=== PATIENT | female | born 1980 | race Caucasian/White ===

== ENCOUNTER 2018-07-02 17:47 | Inpatient (IN) | payer OTHER ==
[2018-07-02] MEDS ORDERED: ASPIRIN PO ONE (18:08)
[2018-07-02 18:29] LABS: Hemoglobin 14.8 gm/dl (10.1-14.3); Mean Corpuscular HGB Conc 33 % (30-34); Mean Corpuscular Volume 89 fl (79-97); Platelet Count 283 K/mm3 (140-440); Red Blood Count 5.04 M/mm3 (3.65-5.03); Red Cell Distribution Width 13.8 % (13.2-15.2)
[2018-07-02 18:30] LABS: Basophils # (Auto) 0.1 K/mm3 (0.0-0.1); Eosinophils # (Auto) 0.3 K/mm3 (0.0-0.4); Lymphocytes # (Auto) 3.8 K/mm3 (1.2-5.4); Lymphocytes % (Auto) 30.8 % (13.4-35.0); Monocytes # (Auto) 0.6 K/mm3 (0.0-0.8); Monocytes % (Auto) 5.1 % (0.0-7.3)
[2018-07-02 18:46] LABS: BUN/Creatinine Ratio 22; Blood Urea Nitrogen 13 mg/dL (7-17); Calcium 9.7 mg/dL (8.4-10.2); Hemolysis Index 26
--- NOTE | 2018-07-02 18:47 | Emergency Department Report ---
ED Chest Pain HPI - General Chief Complaint: Chest Pain Stated Complaint: CHEST PAIN Time Seen by Provider: 07/02/18 18:21 Source: patient, EMS Mode of arrival: Stretcher Limitations: No Limitations - History of Present Illness MD Complaint: chest pain -: Sudden, hour(s) (7), This morning Onset: during rest Pain Location: substernal Pain Radiation: back Severity scale (0 -10): 7 Quality: pressure Consistency: constant Improves With: nothing Worsens With: nothing re: nausea, dyspnea. denies: vomting Treatments Prior to Arrival: aspirin Aspirin use within the Past 7 Days: (1) Yes - Related Data On Oral Contraceptives: No Previous Rx's Medication Instructions Recorded Last Taken Type Aspirin EC [Aspirin Enteric Coated 81 mg PO QDAY #30 tablet.dr 02/18/18 Unknown Rx TAB] AtorvaSTATin [Lipitor] 40 mg PO QHS #30 tablet 02/18/18 Unknown Rx Losartan [Cozaar] 50 mg PO QDAY #30 tablet 02/18/18 Unknown Rx Metoprolol [Lopressor TAB] 25 mg PO BID #60 tablet 02/18/18 Unknown Rx Prasugrel [Effient] 10 mg PO QDAY #30 tablet 02/18/18 Unknown Rx Sitagliptin Phos/Metformin HCl 1 tab PO BID #60 tablet 02/18/18 Unknown Rx [Janumet 50-1,000 mg] Allergies Allergy/AdvReac Type Severity Reaction Status Date / Time No Known Allergies Allergy Unverified 02/15/18 15:16 Heart Score - HEART Score History: Highly suspicious EKG: Non-specific Age: < 45 Risk factors: > 3 risk factors or hx of atherosclerotic disease Troponin: < normal limit HEART Score: 5 - Critical Actions Critical Actions: 4-6 pts:12-16.6% risk of adverse cardiac event. Should be admitted ED Review of Systems ROS: Stated complaint: CHEST PAIN Other details as noted in HPI Comment: All other systems reviewed and negative Constitutional: denies: chills, fever Eyes: denies: eye pain, eye discharge, vision change ENT: denies: ear pain, throat pain Respiratory: shortness of breath. denies: cough, wheezing Cardiovascular: chest pain. denies: palpitations Endocrine: no symptoms reported Gastrointestinal: nausea. denies: abdominal pain, vomiting, diarrhea Genitourinary: denies: urgency, dysuria, discharge Musculoskeletal: denies: back pain, joint swelling, arthralgia Skin: denies: rash, lesions Neurological: denies: headache, weakness, paresthesias Psychiatric: denies: anxiety, depression Hematological/Lymphatic: denies: easy bleeding, easy bruising ED Past Medical Hx - Past Medical History Hx Hypertension: Yes Hx CVA: No Hx Heart Attack/AMI: No Hx Congestive Heart Failure: No Hx Diabetes: Yes Hx Deep Vein Thrombosis: No Hx Pulmonary Embolism: No Hx GERD: Yes Hx Liver Disease: No Hx Renal Disease: No Hx Sickle Cell Disease: No Hx Arthritis: No Hx Headaches / Migraines: No Hx Seizures: No Hx Kidney Stones: No Hx Psychiatric Treatment: No Hx Asthma: No Hx COPD: No Hx Tuberculosis: No Hx Dementia: No Hx HIV: No Additional medical history: high cholesterol, acid reflux tx over the counter, 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 - Surgical History Hx Coronary Stent: No Hx Open Heart Surgery: No Hx Pacemaker: No Hx Internal Defibrillator: Yes Hx Cholecystectomy: Yes Hx Appendectomy: No Hx Breast Surgery: No - Social History Smoking Status: Current Every Day Smoker - Medications Home Medications: Home Medications Medication Instructions Recorded Confirmed Last Taken Type Aspirin EC [Aspirin Enteric Coated 81 mg PO QDAY #30 tablet.dr 02/18/18 Unknown Rx TAB] AtorvaSTATin [Lipitor] 40 mg PO QHS #30 tablet 02/18/18 Unknown Rx Losartan [Cozaar] 50 mg PO QDAY #30 tablet 02/18/18 Unknown Rx Metoprolol [Lopressor TAB] 25 mg PO BID #60 tablet 02/18/18 Unknown Rx Prasugrel [Effient] 10 mg PO QDAY #30 tablet 02/18/18 Unknown Rx Sitagliptin Phos/Metformin HCl 1 tab PO BID #60 tablet 02/18/18 Unknown Rx [Janumet 50-1,000 mg] ED Physical Exam - General Limitations: No Limitations General appearance: alert, in no apparent distress - Head Head exam: Present: atraumatic, normocephalic - Eye Eye exam: Present: normal appearance, PERRL, EOMI Pupils: Present: normal accommodation - ENT ENT exam: Present: normal exam, normal orophraynx, mucous membranes moist - Neck Neck exam: Present: normal inspection, full ROM. Absent: tenderness - Respiratory Respiratory exam: Present: normal lung sounds bilaterally. Absent: respiratory distress, wheezes, rales, rhonchi - Cardiovascular Cardiovascular Exam: Present: regular rate, normal rhythm, normal heart sounds. Absent: systolic murmur, diastolic murmur, rubs, gallop - GI/Abdominal GI/Abdominal exam: Present: soft, normal bowel sounds - Extremities Exam Extremities exam: Present: normal inspection - Back Exam Back exam: Present: normal inspection - Neurological Exam Neurological exam: Present: alert, oriented X3, CN II-XII intact - Psychiatric Psychiatric exam: Present: normal affect, normal mood - Skin Skin exam: Present: warm, dry, intact, normal color. Absent: rash ED Course Vital Signs 07/02/18 07/02/18 07/02/18 18:18 18:29 19:03 Temperature 98.5 F Pulse Rate 85 89 Respiratory 17 15 Rate Blood Pressure 124/89 126/93 [Left] O2 Sat by Pulse 99 97 98 Oximetry - Consultations Consultation #1: 07/02/18 19:27 I called the hospitalist web content manager Dr Barcenas and he advised me to give the patient to the nurse practitioner Ms. Santiago. Ms. Santiago will admit patient to the night Hospitalist. 07/02/18 19:35 Dr Barcenas does not want a bridge order placed. BECK score - Beck Score Age > 65: (0) No Aspirin use within the Past 7 Days: (1) Yes 3 or more CAD Risk Factors: (1) Yes 2 or more Angina events in past 24 hrs: (1) Yes Known CAD with more than 50% Stenosis: (1) Yes Elevated Cardiac Markers: (0) No ST Deviation Greater than 0.5mm: (0) No BECK Score: 4 ED Medical Decision Making - Lab Data Result diagrams: 07/02/18 18:18 07/02/18 18:18 Lab Results 07/02/18 07/02/18 07/02/18 Range/Units 18:18 18:18 18:18 WBC 12.5 H (4.5-11.0) K/mm3 RBC 5.04 H (3.65-5.03) M/mm3 Hgb 14.8 H (10.1-14.3) gm/dl Hct 45.0 H (30.3-42.9) % MCV 89 (79-97) fl MCH 29 (28-32) pg MCHC 33 (30-34) % RDW 13.8 (13.2-15.2) % Plt Count 283 (140-440) K/mm3 Lymph % (Auto) 30.8 (13.4-35.0) % [place] % (Auto) 5.1 (0.0-7.3) % Eos % (Auto) 2.0 (0.0-4.3) % Baso % (Auto) 1.0 (0.0-1.8) % Lymph # 3.8 (1.2-5.4) K/mm3 [place] # 0.6 (0.0-0.8) K/mm3 Eos # 0.3 (0.0-0.4) K/mm3 Baso # 0.1 (0.0-0.1) K/mm3 Seg Neutrophils % 61.1 (40.0-70.0) % Seg Neutrophils # 7.6 (1.8-7.7) K/mm3 PT (12.2-14.9) Sec. INR (0.87-1.13) APTT (24.2-36.6) Sec. Sodium 136 L (137-145) mmol/L Potassium 4.5 (3.6-5.0) mmol/L Chloride 98.6 (98-107) mmol/L Carbon Dioxide 24 (22-30) mmol/L Anion Gap 18 mmol/L BUN 13 (7-17) mg/dL Creatinine 0.6 L (0.7-1.2) mg/dL Estimated GFR > 60 ml/min BUN/Creatinine Ratio 22 % Glucose 144 H (65-100) mg/dL Calcium 9.7 (8.4-10.2) mg/dL Troponin T < 0.010 (0.00-0.029) ng/mL HCG, Qual Negative (Negative) 07/02/18 Range/Units 18:57 WBC (4.5-11.0) K/mm3 RBC (3.65-5.03) M/mm3 Hgb (10.1-14.3) gm/dl Hct (30.3-42.9) % MCV (79-97) fl MCH (28-32) pg MCHC (30-34) % RDW (13.2-15.2) % Plt Count (140-440) K/mm3 Lymph % (Auto) (13.4-35.0) % [place] % (Auto) (0.0-7.3) % Eos % (Auto) (0.0-4.3) % Baso % (Auto) (0.0-1.8) % Lymph # (1.2-5.4) K/mm3 [place] # (0.0-0.8) K/mm3 Eos # (0.0-0.4) K/mm3 Baso # (0.0-0.1) K/mm3 Seg Neutrophils % (40.0-70.0) % Seg Neutrophils # (1.8-7.7) K/mm3 PT 12.6 (12.2-14.9) Sec. INR 0.89 (0.87-1.13) APTT 27.1 (24.2-36.6) Sec. Sodium (137-145) mmol/L Potassium (3.6-5.0) mmol/L Chloride (98-107) mmol/L Carbon Dioxide (22-30) mmol/L Anion Gap mmol/L BUN (7-17) mg/dL Creatinine (0.7-1.2) mg/dL Estimated GFR ml/min BUN/Creatinine Ratio % Glucose (65-100) mg/dL Calcium (8.4-10.2) mg/dL Troponin T (0.00-0.029) ng/mL HCG, Qual (Negative) - EKG Data -: EKG Interpreted by Me EKG shows normal: sinus rhythm Rate: normal (87) - EKG Data When compared to previous EKG there are: no significant change Interpretation: nonspecific ST-T wave renzo (Compared to old EKG on 02/17/2018) 07/02/18 19:19 No STEMI. - Medical Decision Making ACS r/o M.I. Chest Pain. Will admit to the hospitalist for further work up. Critical care attestation.: If time is entered above; I have spent that time in minutes in the direct care of this critically ill patient, excluding procedure time. ED Disposition Clinical Impression: Chest pain Qualifiers: Chest pain type: unspecified Qualified Code(s): R07.9 - Chest pain, unspecified CAD (coronary artery disease) Qualifiers: Coronary Disease-Associated Artery/Lesion type: [place] artery [place] vs. transplanted heart: [place] heart Associated angina: with unspecified angina Qualified Code(s): I25.119 - Atherosclerotic heart disease of [place] coronary artery with unspecified angina pectoris Disposition: DC-09 OP ADMIT IP TO THIS HOSP Is pt being admited?: Yes Does the pt Need Aspirin: Yes Condition: Stable Instructions: Chest Pain (ED) Time of Disposition: 19:30
[2018-07-02] MEDS ORDERED: TYLENOL PO ONE (19:15)
[2018-07-02 19:16] LABS: INR 0.89 (0.87-1.13)
[2018-07-02 19:17] LABS: Partial Thromboplastin Time 27.1 Sec. (24.2-36.6)
[2018-07-02 19:19] LABS: Alanine Aminotransferase 43 units/L (7-56); Albumin 4.4 g/dL (3.9-5)
[2018-07-02 19:20] LABS: Bilirubin,Direct < 0.2 mg/dL (0-0.2)
--- NOTE | 2018-07-02 19:36 | XRay Report ---
PROCEDURE: XR CHEST 1V AP TECHNIQUE: Chest radiograph single view. HISTORY: Chest Pain COMPARISONS: None . FINDINGS: Heart: Normal. Mediastinum/Vessels: Normal. Lungs/Pleural space: Normal. Bony thorax: No acute osseous abnormality. Life support devices: None. IMPRESSION: No acute cardiopulmonary abnormality. This document is electronically signed by Jeaneth West MD., Jul 02 2018 07:34:12 PM ET
[2018-07-02] MEDS ORDERED: TYLENOL PO PRN (20:07)
[2018-07-02] MEDS ORDERED: MILK OF MAGNESIA PO PRN (20:07)
[2018-07-02] MEDS ORDERED: SODIUM CHLORIDE FLUSH SYRINGE 10 ML IV PRN ×2 (20:07)
[2018-07-02] MEDS ORDERED: ZOFRAN IV PRN (20:07)
[2018-07-02] MEDS ORDERED: APRESOLINE IV PRN (20:07)
--- NOTE | 2018-07-02 20:19 | History and Physical Report ---
<LEONARDO ASTUDILLO - Last Filed: 07/03/18 02:51> History of Present Illness Date of examination: 07/02/18 Date of admission: 07/02/2018 Chief complaint: Chest pain History of present illness: Pt is a 37 year old female with PMHx Takayasu arteritis (aortic arc syndrome), DM type 2, HTN who presents to the ER with complaints of chest pain that started today. Patient states that she saw her tipple worker yesterday for evaluation of Takayasu arteritis, she states that the chest pain is located in the midsternal area radiating to the back, she is unable to lay flat due to the pain, patient also reports that the chest pain is associated with shortness of breath and fatigue. Patient denies palpitation, denies diaphoresis, denies nausea, denies vomiting, denies headache, denies dizziness. Patient was evaluated in the ER, her EKG showed no STEMI criteria, her cardiac enzymes was negative, she was placed in observation for further evaluation of her chest pain. Past History Past Medical History: diabetes, hypertension, other (Takayasu arteritis ) Social history: no significant social history Family history: no significant family history Medications and Allergies Allergies Allergy/AdvReac Type Severity Reaction Status Date / Time No Known Allergies Allergy Unverified 02/15/18 15:16 Home Medications Medication Instructions Recorded Confirmed Last Taken Type Aspirin EC [Aspirin Enteric Coated 81 mg PO QDAY #30 tablet. 02/18/18 07/02/18 07/02/18 Rx TAB] AtorvaSTATin [Lipitor] 40 mg PO QHS #30 tablet 02/18/18 07/02/18 07/02/18 Rx Losartan [Cozaar] 50 mg PO QDAY #30 tablet 02/18/18 07/02/18 07/02/18 Rx Prasugrel [Effient] 10 mg PO QDAY #30 tablet 02/18/18 07/02/18 07/02/18 Rx Sitagliptin Phos/Metformin HCl 1 tab PO BID #60 tablet 02/18/18 07/02/18 07/02/18 Rx [Janumet 50-1,000 mg] Liraglutide [Victoza 2-Rolf] 1.2 mg SQ QDAY 07/02/18 07/02/18 07/02/18 History Metoprolol [Lopressor TAB] 50 mg PO BID 07/02/18 07/02/18 07/02/18 History Nitroglycerin 0.4 mg SL PRN PRN 07/02/18 07/02/18 Unknown History amLODIPine [Norvasc] 5 mg PO DAILY 07/02/18 07/02/18 07/02/18 History Active Meds: Active Medications Acetaminophen (Tylenol) 650 mg PO Q4H PRN PRN Reason: Pain MILD(1-3)/Fever >100.5/PRIDE Famotidine (Pepcid) 20 mg IV BID BONNIE Hydralazine HCl (Apresoline) 10 mg IV Q6HR PRN PRN Reason: FOR SBP > target Magnesium Hydroxide (Milk Of Magnesia) 30 ml PO Q4H PRN PRN Reason: Constipation Morphine Sulfate (Morphine) 2 mg IV Q4H PRN PRN Reason: Pain, Moderate (4-6) Ondansetron HCl (Zofran) 4 mg IV Q8H PRN PRN Reason: Nausea And Vomiting Sodium Chloride (Sodium Chloride Flush Syringe 10 Ml) 10 ml IV BID BONNIE Sodium Chloride (Sodium Chloride Flush Syringe 10 Ml) 10 ml IV PRN PRN PRN Reason: LINE FLUSH Sodium Chloride (Sodium Chloride Flush Syringe 10 Ml) 10 ml IV PRN PRN PRN Reason: LINE FLUSH Review of Systems Cardiovascular: chest pain, shortness of breath, dyspnea on exertion Exam - Constitutional Vitals: Temp Pulse Resp BP Pulse Ox 98.5 F 91 H 16 126/93 100 07/02/18 18:29 07/02/18 19:31 07/02/18 19:31 07/02/18 19:31 07/02/18 19:31 General appearance: Present: mild distress - EENT Eyes: Present: EOM intact ENT: hearing intact - Neck Neck: Present: normal ROM - Respiratory Respiratory effort: other (mild labor breathing) Respiratory: bilateral: CTA - Cardiovascular Rhythm: regular Heart Sounds: Present: S1 & S2 - Extremities Extremities: No edema Peripheral Pulses: within normal limits - Abdominal General gastrointestinal: Present: non-tender Female genitourinary: Present: deferred - Rectal Rectal Exam: deferred - Integumentary Integumentary: Present: warm, dry - Musculoskeletal Musculoskeletal: strength equal bilaterally - Psychiatric Psychiatric: appropriate mood/affect, cooperative - Neurologic Neurologic: moves all extremities Results - Labs CBC & Chem 7: 07/02/18 18:18 07/02/18 20:24 Labs: Laboratory Last Values WBC 12.5 K/mm3 (4.5-11.0) H 07/02/18 18:18 RBC 5.04 M/mm3 (3.65-5.03) H 07/02/18 18:18 Hgb 14.8 gm/dl (10.1-14.3) H 07/02/18 18:18 Hct 45.0 % (30.3-42.9) H 07/02/18 18:18 MCV 89 fl (79-97) 07/02/18 18:18 MCH 29 pg (28-32) 07/02/18 18:18 MCHC 33 % (30-34) 07/02/18 18:18 RDW 13.8 % (13.2-15.2) 07/02/18 18:18 Plt Count 283 K/mm3 (140-440) 07/02/18 18:18 Lymph % (Auto) 30.8 % (13.4-35.0) 07/02/18 18:18 [place] % (Auto) 5.1 % (0.0-7.3) 07/02/18 18:18 Eos % (Auto) 2.0 % (0.0-4.3) 07/02/18 18:18 Baso % (Auto) 1.0 % (0.0-1.8) 07/02/18 18:18 Lymph # 3.8 K/mm3 (1.2-5.4) 07/02/18 18:18 [place] # 0.6 K/mm3 (0.0-0.8) 07/02/18 18:18 Eos # 0.3 K/mm3 (0.0-0.4) 07/02/18 18:18 Baso # 0.1 K/mm3 (0.0-0.1) 07/02/18 18:18 Seg Neutrophils % 61.1 % (40.0-70.0) 07/02/18 18:18 Seg Neutrophils # 7.6 K/mm3 (1.8-7.7) 07/02/18 18:18 PT 12.6 Sec. (12.2-14.9) 07/02/18 18:57 INR 0.89 (0.87-1.13) 07/02/18 18:57 APTT 27.1 Sec. (24.2-36.6) 07/02/18 18:57 D-Dimer 171.29 ng/mlDDU (0-234) 07/02/18 18:57 Sodium 136 mmol/L (137-145) L 07/02/18 18:18 Potassium 4.5 mmol/L (3.6-5.0) 07/02/18 18:18 Chloride 98.6 mmol/L (98-107) 07/02/18 18:18 Carbon Dioxide 24 mmol/L (22-30) 07/02/18 18:18 Anion Gap 18 mmol/L 07/02/18 18:18 BUN 13 mg/dL (7-17) 07/02/18 18:18 Creatinine 0.6 mg/dL (0.7-1.2) L 07/02/18 18:18 Estimated GFR > 60 ml/min 07/02/18 18:18 BUN/Creatinine Ratio 22 % 07/02/18 18:18 Glucose 144 mg/dL (65-100) H 07/02/18 18:18 Calcium 9.7 mg/dL (8.4-10.2) 07/02/18 18:18 Total Bilirubin 0.50 mg/dL (0.1-1.2) 07/02/18 18:57 Direct Bilirubin < 0.2 mg/dL (0-0.2) 07/02/18 18:57 Indirect Bilirubin 0.3 mg/dL 07/02/18 18:57 AST 20 units/L (5-40) 07/02/18 18:57 ALT 43 units/L (7-56) 07/02/18 18:57 Alkaline Phosphatase 47 units/L (35-129) 07/02/18 18:57 Troponin T < 0.010 ng/mL (0.00-0.029) 07/02/18 18:18 NT-Pro-B Natriuret Pep 76.87 pg/mL (0-450) 07/02/18 18:57 Total Protein 7.8 g/dL (6.3-8.2) 07/02/18 18:57 Albumin 4.4 g/dL (3.9-5) 07/02/18 18:57 Albumin/Globulin Ratio 1.3 % 07/02/18 18:57 HCG, Qual Negative (Negative) 07/02/18 18:18 Assessment and Plan Assessment and plan: 1. Chest pain R/o ACS 2. H/o Takayasu arteritis 3. DM type 2 (controlled) 4. HTN (BP stable) 5. GERD 6. Mild obesity Plan Admit to medtele Consult cardiology for chest pain/Takayasu arteritis Continue CE q6hr x 2 more Monitor vital signs Accu check ACHS with insulin per sliding scale Continue home meds Plan of care d/w pt, voiced understading Patient's condition and plan of care discussed with Dr. Pritchett Advance Directives: Yes VTE prophylaxis?: Chemical Plan of care discussed with patient/family: Yes <FRANC PRITCHETT - Last Filed: 07/03/18 04:39> History of Present Illness Date of admission: 07/02/18 20:07 Medications and Allergies Active Meds: Active Medications Acetaminophen (Tylenol) 650 mg PO Q4H PRN PRN Reason: Pain MILD(1-3)/Fever >100.5/PRIDE Amlodipine Besylate (Norvasc) 5 mg PO DAILY [facility] Aspirin (Halfprin Ec) 81 mg PO QDAY [facility] Atorvastatin Calcium (Lipitor) 40 mg PO QHS [facility] Dextrose (D50w (25gm) Syringe) 50 ml IV PRN PRN PRN Reason: Hypoglycemia Famotidine (Pepcid) 20 mg IV BID [facility] Last Admin: 07/02/18 21:46 Dose: 20 mg Documented by: Hydralazine HCl (Apresoline) 10 mg IV Q6H PRN PRN Reason: FOR SBP > target Insulin Glargine (Lantus) 10 units SUB-Q QHS [facility] Insulin Human Lispro (Humalog) 0 unit SUB-Q ACHS [facility]; Protocol Losartan Potassium (Cozaar) 50 mg PO QDAY@0800 [facility] Magnesium Hydroxide (Milk Of Magnesia) 30 ml PO Q4H PRN PRN Reason: Constipation Metoprolol Tartrate (Lopressor) 50 mg PO BID [facility] Morphine Sulfate (Morphine) 2 mg IV Q4H PRN PRN Reason: Pain, Moderate (4-6) Last Admin: 07/03/18 04:11 Dose: 2 mg Documented by: Nitroglycerin (Nitrostat) 0.4 mg SL Q5MIN PRN PRN Reason: Chest Pain Ondansetron HCl (Zofran) 4 mg IV Q8H PRN PRN Reason: Nausea And Vomiting Prasugrel (Effient) 10 mg PO QDAY [facility] Sodium Chloride (Sodium Chloride Flush Syringe 10 Ml) 10 ml IV BID [facility] Last Admin: 07/02/18 21:46 Dose: 10 ml Documented by: Sodium Chloride (Sodium Chloride Flush Syringe 10 Ml) 10 ml IV PRN PRN PRN Reason: LINE FLUSH Exam - Constitutional Vitals: Temp Pulse Resp BP Pulse Ox 98.2 F 82 20 138/97 97 07/02/18 22:36 07/02/18 22:36 07/03/18 04:11 07/02/18 22:36 07/02/18 22:36 Results - Labs CBC & Chem 7: 07/02/18 18:18 07/02/18 20:24 Labs: Laboratory Last Values WBC 12.5 K/mm3 (4.5-11.0) H 07/02/18 18:18 RBC 5.04 M/mm3 (3.65-5.03) H 07/02/18 18:18 Hgb 14.8 gm/dl (10.1-14.3) H 07/02/18 18:18 Hct 45.0 % (30.3-42.9) H 07/02/18 18:18 MCV 89 fl (79-97) 07/02/18 18:18 MCH 29 pg (28-32) 07/02/18 18:18 MCHC 33 % (30-34) 07/02/18 18:18 RDW 13.8 % (13.2-15.2) 07/02/18 18:18 Plt Count 283 K/mm3 (140-440) 07/02/18 18:18 Lymph % (Auto) 30.8 % (13.4-35.0) 07/02/18 18:18 [place] % (Auto) 5.1 % (0.0-7.3) 07/02/18 18:18 Eos % (Auto) 2.0 % (0.0-4.3) 07/02/18 18:18 Baso % (Auto) 1.0 % (0.0-1.8) 07/02/18 18:18 Lymph # 3.8 K/mm3 (1.2-5.4) 07/02/18 18:18 [place] # 0.6 K/mm3 (0.0-0.8) 07/02/18 18:18 Eos # 0.3 K/mm3 (0.0-0.4) 07/02/18 18:18 Baso # 0.1 K/mm3 (0.0-0.1) 07/02/18 18:18 Seg Neutrophils % 61.1 % (40.0-70.0) 07/02/18 18:18 Seg Neutrophils # 7.6 K/mm3 (1.8-7.7) 07/02/18 18:18 PT 12.6 Sec. (12.2-14.9) 07/02/18 18:57 INR 0.89 (0.87-1.13) 07/02/18 18:57 APTT 27.1 Sec. (24.2-36.6) 07/02/18 18:57 D-Dimer 171.29 ng/mlDDU (0-234) 07/02/18 18:57 Sodium 137 mmol/L (137-145) 07/02/18 20:24 Potassium 4.4 mmol/L (3.6-5.0) 07/02/18 20:24 Chloride 101.7 mmol/L (98-107) 07/02/18 20:24 Carbon Dioxide 20 mmol/L (22-30) L 07/02/18 20:24 Anion Gap 20 mmol/L 07/02/18 20:24 BUN 14 mg/dL (7-17) 07/02/18 20:24 Creatinine 0.6 mg/dL (0.7-1.2) L 07/02/18 20:24 Estimated GFR > 60 ml/min 07/02/18 20:24 BUN/Creatinine Ratio 23 % 07/02/18 20:24 Glucose 137 mg/dL (65-100) H 07/02/18 20:24 Hemoglobin A1c 8.1 % (4-6) H 07/02/18 20:24 Calcium 9.8 mg/dL (8.4-10.2) 07/02/18 20:24 Total Bilirubin 0.50 mg/dL (0.1-1.2) 05/04/19 18:57 Direct Bilirubin < 0.2 mg/dL (0-0.2) 07/02/18 18:57 Indirect Bilirubin 0.3 mg/dL 07/02/18 18:57 AST 20 units/L (5-40) 07/02/18 18:57 ALT 43 units/L (7-56) 07/02/18 18:57 Alkaline Phosphatase 47 units/L (35-129) 07/02/18 18:57 Troponin T < 0.010 ng/mL (0.00-0.029) 07/03/18 00:24 NT-Pro-B Natriuret Pep 76.87 pg/mL (0-450) 07/02/18 18:57 Total Protein 7.8 g/dL (6.3-8.2) 07/02/18 18:57 Albumin 4.4 g/dL (3.9-5) 07/02/18 18:57 Albumin/Globulin Ratio 1.3 % 07/02/18 18:57 HCG, Qual Negative (Negative) 07/02/18 18:18 Assessment and Plan Assessment and plan: 37-year-old woman with akayasu arteritis , coronary artery disease, status post stent, S2, DM type 2, HTN S emergency room complaining of chest pain in the epigastric area described as pressure-like sensation radiating to the bilateral shoulders. Physical exam is benign, cardiac enzymes, cardiology consult
[2018-07-02 20:56] LABS: BUN/Creatinine Ratio 23; Blood Urea Nitrogen 14 mg/dL (7-17); Calcium 9.8 mg/dL (8.4-10.2); Hemolysis Index 8
[2018-07-02] MEDS: PEPCID IV SCH (21:46)
[2018-07-02] MEDS: SODIUM CHLORIDE FLUSH SYRINGE 10 ML IV SCH (21:46)
[2018-07-02] MEDS ORDERED: D50W (25GM) Syringe IV PRN (22:44)
[2018-07-03] MEDS ORDERED: NITROSTAT SL PRN (03:18)
[2018-07-03] MEDS: MORPHINE IV PRN ×2 (04:11→22:14)
[2018-07-03] MEDS: HumaLOG SUB-Q SCH ×4 (09:13→22:20)
[2018-07-03] MEDS: NORVASC PO SCH (09:16)
[2018-07-03] MEDS: EFFIENT PO SCH (09:16)
[2018-07-03] MEDS: HALFPRIN EC PO SCH (09:16)
[2018-07-03] MEDS: PEPCID IV SCH ×2 (09:17→22:18)
[2018-07-03] MEDS: LOPRESSOR PO SCH ×2 (09:23→22:18)
[2018-07-03] MEDS: SODIUM CHLORIDE FLUSH SYRINGE 10 ML IV SCH ×2 (09:26→22:22)
[2018-07-03] MEDS: COZAAR PO SCH (09:30)
--- NOTE | 2018-07-03 12:08 | Event Note ---
Date: 07/03/18 Cardiology note dictated #1 chest pain etiology uncertain. Cardiac enzymes are negative #2 coronary artery disease status post YANCY placement to right coronary artery and the circumflex coronary artery after acute coronary syndrome in January 2018. Normal left ventricular function #3 hypertension #4 diabetes #5 hyperlipidemia #6 possible Takayasu type of arteritis #7 history of chronic smoking/currently vaping with nicotine. Patient is advised to stop using any nicotine-containing products Plan is to obtain a nuclear stress test and follow the patient closely. Thank you Dr. MELIZA Mccray
--- NOTE | 2018-07-03 13:36 | Progress Note ---
Assessment and Plan Assessment and plan: Pt is a 37 year old female with PMHx Takayasu arteritis (aortic arc syndrome), D M type 2, HTN who presents to the ER with complaints of chest pain that started today. Patient states that she saw her mortgage analyst yesterday for evaluation of Takayasu arteritis, she states that the chest pain is located in the midsternal area radiating to the back, she is unable to lay flat due to the pain, patient also reports that the chest pain is associated with shortness of breath and fati florence. Patient denies palpitation, denies diaphoresis, denies nausea, denies vomiting, denies headache, denies dizziness. Patient was evaluated in the ER, her EKG showed no STEMI criteria, her cardiac enzymes was negative, she was placed in observation for further evaluation of her chest pain. CXR: NORMAL 1. Chest pain R/o ACS 2. H/o Takayasu arteritis 3. DM type 2 (controlled) 4. HTN (BP stable) 5. GERD 6. Mild obesity 7. Leukocytosis: ?reactive 8. Nicotine dependance 9. Gastroenteritis- Recent nausea with vomiting and diarrhea few days prior to presentation now resolved Plan Contineu supportive care Cardiology input noted, Coronary artery disease status post YANCY placement to right coronary artery and the circumflex coronary artery after acute coronary syndrome in January 2018. Normal left ventricular function.... Stress test in am Monitor vital signs Accu check ACHS with insulin per sliding scale Continue home meds Monitor for resolution of leukocytosis Nicotin cessation discussed in detail for 15 mins Plan of care d/w pt, voiced understanding History Interval history: Patient seen and examined, no acute distress. reports recent gastric illness with nausea and vomiting and diarrhea which has all now stopped prior to the presentation Hospitalist Physical - Constitutional Vitals: Temp Pulse Resp BP Pulse Ox 97.9 F 87 18 122/84 97 07/03/18 12:08 07/03/18 12:08 07/03/18 12:08 07/03/18 12:08 07/03/18 12:08 General appearance: Present: mild distress, obese - EENT Eyes: Present: PERRL ENT: hearing intact, clear oral mucosa - Neck Neck: Present: supple, normal ROM - Respiratory Respiratory effort: normal Respiratory: bilateral: CTA - Cardiovascular Rhythm: regular Heart Sounds: Present: S1 & S2. Absent: systolic murmur, diastolic murmur - Extremities Extremities: no ischemia, pulses intact, pulses symmetrical, No edema, normal temperature, Full ROM Peripheral Pulses: within normal limits - Abdominal General gastrointestinal: soft, non-tender, non-distended, normal bowel sounds - Integumentary Integumentary: Present: clear, warm, dry - Psychiatric Psychiatric: appropriate mood/affect, intact judgment & insight, cooperative - Neurologic Neurologic: CNII-XII intact, moves all extremities - Allied Health Allied health notes reviewed: nursing Results - Labs CBC & Chem 7: 07/02/18 18:18 07/02/18 20:24 Labs: Laboratory Last Values WBC 12.5 K/mm3 (4.5-11.0) H 07/02/18 18:18 RBC 5.04 M/mm3 (3.65-5.03) H 07/02/18 18:18 Hgb 14.8 gm/dl (10.1-14.3) H 07/02/18 18:18 Hct 45.0 % (30.3-42.9) H 07/02/18 18:18 MCV 89 fl (79-97) 07/02/18 18:18 MCH 29 pg (28-32) 07/02/18 18:18 MCHC 33 % (30-34) 07/02/18 18:18 RDW 13.8 % (13.2-15.2) 07/02/18 18:18 Plt Count 283 K/mm3 (140-440) 07/02/18 18:18 Lymph % (Auto) 30.8 % (13.4-35.0) 07/02/18 18:18 Cooper % (Auto) 5.1 % (0.0-7.3) 07/02/18 18:18 Eos % (Auto) 2.0 % (0.0-4.3) 07/02/18 18:18 Baso % (Auto) 1.0 % (0.0-1.8) 07/02/18 18:18 Lymph # 3.8 K/mm3 (1.2-5.4) 07/02/18 18:18 Cooper # 0.6 K/mm3 (0.0-0.8) 07/02/18 18:18 Eos # 0.3 K/mm3 (0.0-0.4) 07/02/18 18:18 Baso # 0.1 K/mm3 (0.0-0.1) 07/02/18 18:18 Seg Neutrophils % 61.1 % (40.0-70.0) 07/02/18 18:18 Seg Neutrophils # 7.6 K/mm3 (1.8-7.7) 07/02/18 18:18 PT 12.6 Sec. (12.2-14.9) 07/02/18 18:57 INR 0.89 (0.87-1.13) 07/02/18 18:57 APTT 27.1 Sec. (24.2-36.6) 07/02/18 18:57 D-Dimer 171.29 ng/mlDDU (0-234) 07/02/18 18:57 Sodium 137 mmol/L (137-145) 07/02/18 20:24 Potassium 4.4 mmol/L (3.6-5.0) 07/02/18 20:24 Chloride 101.7 mmol/L (98-107) 07/02/18 20:24 Carbon Dioxide 20 mmol/L (22-30) L 07/02/18 20:24 Anion Gap 20 mmol/L 07/02/18 20:24 BUN 14 mg/dL (7-17) 07/02/18 20:24 Creatinine 0.6 mg/dL (0.7-1.2) L 07/02/18 20:24 Estimated GFR > 60 ml/min 07/02/18 20:24 BUN/Creatinine Ratio 23 % 07/02/18 20:24 Glucose 137 mg/dL (65-100) H 07/02/18 20:24 POC Glucose 123 (70-105) H 07/03/18 08:28 Hemoglobin A1c 8.1 % (4-6) H 07/02/18 20:24 Calcium 9.8 mg/dL (8.4-10.2) 07/02/18 20:24 Total Bilirubin 0.50 mg/dL (0.1-1.2) 07/02/18 18:57 Direct Bilirubin < 0.2 mg/dL (0-0.2) 07/02/18 18:57 Indirect Bilirubin 0.3 mg/dL 07/02/18 18:57 AST 20 units/L (5-40) 07/02/18 18:57 ALT 43 units/L (7-56) 07/02/18 18:57 Alkaline Phosphatase 47 units/L (35-129) 07/02/18 18:57 Troponin T < 0.010 ng/mL (0.00-0.029) 07/03/18 04:48 NT-Pro-B Natriuret Pep 76.87 pg/mL (0-450) 07/02/18 18:57 Total Protein 7.8 g/dL (6.3-8.2) 07/02/18 18:57 Albumin 4.4 g/dL (3.9-5) 07/02/18 18:57 Albumin/Globulin Ratio 1.3 % 07/02/18 18:57 HCG, Qual Negative (Negative) 07/02/18 18:18 Active Medications - Current Medications Current Medications: Generic Name Dose Route Start Last Admin Trade Name Freq PRN Reason Stop Dose Admin Acetaminophen 650 mg 07/02/18 20:07 Tylenol PO Q4H PRN Pain MILD(1-3)/Fever >100.5/PRIDE Amlodipine Besylate 5 mg 07/03/18 10:00 07/03/18 09:16 Norvasc PO 5 mg DAILY BONNIE Administration Aspirin 81 mg 07/03/18 10:00 07/03/18 09:16 Halfprin Ec PO 81 mg QDAY BONNIE Administration Atorvastatin Calcium 40 mg 07/03/18 22:00 Lipitor PO QHS BONNIE Dextrose 50 ml 07/02/18 22:44 D50w (25gm) Syringe IV PRN PRN Hypoglycemia Famotidine 20 mg 07/02/18 22:00 07/03/18 09:17 Pepcid IV 20 mg BID BONNIE Administration Hydralazine HCl 10 mg 07/02/18 20:07 Apresoline IV Q6H PRN FOR SBP > target Insulin Glargine 10 units 07/03/18 22:00 Lantus SUB-Q QHS BONNIE Insulin Human Lispro 0 unit 07/03/18 07:30 07/03/18 12:27 Humalog SUB-Q 2 unit ACHS BONNIE Administration Protocol Losartan Potassium 50 mg 07/03/18 08:00 07/03/18 09:30 Cozaar PO 50 mg QDAY@0800 BONNIE Administration Magnesium Hydroxide 30 ml 07/02/18 20:07 Milk Of Magnesia PO Q4H PRN Constipation Metoprolol Tartrate 50 mg 07/03/18 10:00 07/03/18 09:23 Lopressor PO 50 mg BID BONNIE Administration Morphine Sulfate 2 mg 07/02/18 20:07 07/03/18 04:11 Morphine IV 2 mg Q4H PRN Administration Pain, Moderate (4-6) Nitroglycerin 0.4 mg 07/03/18 03:18 Nitrostat SL Q5MIN PRN Chest Pain Ondansetron HCl 4 mg 07/02/18 20:07 Zofran IV Q8H PRN Nausea And Vomiting Prasugrel 10 mg 07/03/18 10:00 07/03/18 09:16 Effient PO 10 mg QDAY BONNIE Administration Sodium Chloride 10 ml 07/02/18 22:00 07/03/18 09:26 Sodium Chloride Flush Syringe 10 Ml IV 10 ml BID BONNIE Administration Sodium Chloride 10 ml 07/02/18 20:07 Sodium Chloride Flush Syringe 10 Ml IV PRN PRN LINE FLUSH
[2018-07-03] MEDS ORDERED: LANTUS SUB-Q SCH (22:00)
--- NOTE | 2018-07-04 01:22 | Consultation ---
CARDIOLOGY EVALUATION HISTORY OF PRESENT ILLNESS: The patient is a 37-year-old female well known to us and followed by Dr. Dotson comes to the Emergency Room complaining about chest discomfort that started at about 11:00 yesterday morning. She was not doing anything very strenuous prior to that. The pain is described as diffuse bilateral pain, sometimes described as a pressure type of discomfort. This was present yesterday, but today the pain has improved somewhat, but she still has pain more on the right side of the chest. There was some radiation to the back noted. She has been unable to lie flat due to the pain. Sometimes the chest pain is worse with movements of the shoulders. The patient is admitted for further evaluation and management. She is known to have coronary artery disease. She had acute coronary syndrome during 01/2018. She underwent cardiac catheterization at that time, and she had staged stent placement in circumflex and right coronary artery. She also has mild LAD disease. The patient has been taking her medications regularly. She used to smoke, she stopped smoking, but she does use vape with nicotine. She is again advised against the same. The patient is known to have longstanding history of hypertension. She is also known to have had hyperlipidemia and diabetes for about 6-7 years. FAMILY HISTORY: Negative for coronary artery disease. REVIEW OF SYSTEMS: HEAD, EYES, EARS, NOSE AND THROAT: No symptoms. ENDOCRINE: Known to have diabetes. CARDIOVASCULAR: As mentioned earlier. PULMONARY: No symptoms. GASTROINTESTINAL: No abdominal pain, nausea, or vomiting. Bowel habits have been regular. She had cholecystectomy in the past. GENITOURINARY: No symptoms. CENTRAL NERVOUS SYSTEM: No history of cerebrovascular accident or convulsive disorder. 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 Dr. Dotson is monitoring this. LOCOMOTOR: No symptoms. HEMATOLOGY/ONCOLOGY: No symptoms. PERSONAL HISTORY: The patient uses a vape with nicotine. Nonalcoholic. DRUG ALLERGIES: No known drug allergies. PHYSICAL EXAMINATION: GENERAL: Adult female, overweight, in no acute distress. VITAL SIGNS: Blood pressure 113/85, pulse 94, and respirations 18. HEAD, EYES, EARS, NOSE, and THROAT: Unremarkable. NECK: Supple. No thyromegaly. Both carotids are palpable and equal. Neck veins are flat. CHEST: Symmetrical. LUNGS: Clear. CARDIOVASCULAR: S1 and S2 are heard well. No S3. No significant murmurs are appreciated. No significant chest wall tenderness is present. ABDOMEN: Soft, nontender. No hepatosplenomegaly. Peristaltic sounds are heard well. EXTREMITIES: No significant edema or calf tenderness. Peripheral pulses are somewhat difficult to palpate. LABORATORY DATA: EKG is sinus rhythm, nonspecific ST changes are present, no acute abnormalities are noted. WBC 12.5, hemoglobin 14.8, and hematocrit 45. Sodium 137, potassium 4.4, creatinine 0.6, blood sugar 137, hemoglobin A1c 8.1. BNP and troponin is noted to be negative. Chest x-ray, no acute abnormalities are present. IMPRESSION: 1. Chest pain, etiology uncertain. 2. Coronary artery disease, status post acute coronary syndrome in 01/2018, followed by stent placements to both RCA and circumflex coronary arteries. 3. Hypertension. 4. Diabetes. 5. Hyperlipidemia. 6. Chronic smoking, now vaping with nicotine. The patient is strongly advised against the same. 7. Obesity. 8. 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 The patient is seen for cardiac evaluation. Clinically, cardiac status is stable. PLAN: At this time is to obtain a nuclear stress test tomorrow and decide further management. Thank you for allowing me to participate in the care of this pleasant lady. JOB# [id number] RAJI/TIFFANIE
[2018-07-04] MEDS ORDERED: LEXISCAN IV ONE ×2 (09:34→09:44)
--- NOTE | 2018-07-04 10:20 | Progress Note ---
<BRAYAN PERRIN - Last Filed: 07/04/18 11:31> Assessment and Plan S/p lexiscan MPI stress test this AM which showed minimal lateral reversibility. Optimize anti-ischemic regimen - initiate Ranexa. Pt may discharge home from cardiology standpoint. If symptoms persist despite optimal medical therapy, can consider repeat LHC as OP. Recommend follow up in our office with Dr. Dotson within 1-2 weeks of hospital discharge ([phone]). Pt verbalizes understanding. The patient has been seen in conjunction with Dr. MELIZA Mccray who agrees with the assessment and plan of care. - Patient Problems (1) Chest pain Current Visit: Yes Status: Acute Qualifiers: Chest pain type: unspecified Qualified Code(s): R07.9 - Chest pain, unspecified (2) CAD (coronary artery disease) Current Visit: Yes Status: Chronic Qualifiers: Coronary Disease-Associated Artery/Lesion type: [place] artery [place] vs. transplanted heart: [place] heart Associated angina: with unspecified angina Qualified Code(s): I25.119 - Atherosclerotic heart disease of [place] coronary artery with unspecified angina pectoris (3) Stented coronary artery Current Visit: Yes Status: Chronic (4) HTN (hypertension) Current Visit: Yes Status: Chronic Qualifiers: Hypertension type: essential hypertension Qualified Code(s): I10 - Essential (primary) hypertension (5) T2DM (type 2 diabetes mellitus) Current Visit: Yes Status: Chronic Qualifiers: Diabetes mellitus senior care insulin use: without termination clerk use (6) Hyperlipidemia Current Visit: Yes Status: Chronic (7) Tobacco use Current Visit: Yes Status: Chronic Subjective Date of service: 07/04/18 Principal diagnosis: cp Interval history: pt resting comfortably in bed, for stress test today. c/o some intermittent right-sided cp overnight which is aggravated by movement. Objective Last Vital Signs Temp 97.8 F 07/04/18 04:17 Pulse 75 07/04/18 04:17 Resp 16 07/04/18 04:17 BP 118/84 07/04/18 04:17 Pulse Ox 95 07/04/18 04:17 - Physical Examination General: No Apparent Distress HEENT: Positive: PERRL, Normocephaly, Mucus Membranes Moist Neck: Positive: neck supple, trachea midline Cardiac: Positive: Reg Rate and Rhythm, S1/S2 Lungs: Positive: clear to auscultation Neuro: Positive: Grossly Intact Abdomen: Positive: Soft. Negative: Tender Skin: Negative: Rash, Wound Musculoskeletal: No Pain Extremities: Absent: edema - Imaging and Cardiology EKG: report reviewed, image reviewed Echo: report reviewed Cardiac cath: report reviewed (YANCY placement to right coronary artery and the circumflex coronary artery after acute coronary syndrome in January 2018. Normal left ventricular function) - Telemetry EKG Rhythm: Sinus Rhythm <MIREYA MCCRAY - Last Filed: 07/04/18 12:53> Assessment and Plan Nuclear stress findings are explained to the patient. Minimal lateral abnormalities are noted. At present will treat her with the additional medications such as Ranexa and nitrates. Patient will be reassessed in one to 2 weeks. We will have a low threshold to proceed with cardiac catheterization if she has recurrent chest discomfort. Objective Vital Signs Temp Pulse Pulse Pulse Resp BP Pulse Ox 07/04/18 12:40 84 119/84 07/04/18 12:38 84 119/77 07/04/18 11:57 98.4 F 07/04/18 11:56 84 18 119/77 97 07/04/18 09:42 129/91 07/04/18 09:41 132/92 07/04/18 09:40 128/87 07/04/18 09:39 103/52 07/04/18 08:10 120/77 07/04/18 04:17 97.8 F 75 16 118/84 95 07/04/18 04:00 75 07/03/18 23:29 98.4 F 87 16 110/78 95 07/03/18 23:00 85 85 18 07/03/18 22:18 92 H 124/81 07/03/18 20:00 97.9 F 92 H 07/03/18 19:48 85 16 124/81 95 07/03/18 16:55 87 124/86 98 07/03/18 16:23 99
--- NOTE | 2018-07-04 11:08 | Discharge Summary ---
Providers - Providers Date of Admission: 07/02/18 20:07 Attending physician: DEL CALLEJAS MD 07/02/18 Consult to Cardiac Rehabilitation [CONS] Routine Reason For Exam: Phase I 07/02/18 20:07 Consult to Cardiology [CONS] Routine Consulting Provider: EMMANUEL DEL TORO Reason For Exam: chest pain, pt's known to you Primary care physician: LONDON INGRAM DO Hospitalization Reason for admission: chest pain Condition: Stable Hospital course: Pt is a 37 year old female with PMHx Takayasu arteritis (aortic arc syndrome), DM type 2, HTN who presents to the ER with complaints of chest pain that started today. Patient states that she saw her revenue investigator yesterday for evaluation of Takayasu arteritis, she states that the chest pain is located in the midsternal area radiating to the back, she is unable to lay flat due to the pain, patient also reports that the chest pain is associated with shortness of breath and fatigue. Patient denies palpitation, denies diaphoresis, denies nausea, denies vomiting, denies headache, denies dizziness. Patient was evaluated in the ER, her EKG showed no STEMI criteria, her cardiac enzymes was negative, she was placed in observation for further evaluation of her chest pain. CXR: NORMAL Pateint underwent stress test which showed minimal lateral reversibility. Optimi ze anti-ischemic regimen - initiate Ranexa and the plan is for cardiac cath if pain persist with medical therapy. The patient was also referred to Vascular surgery due to recurrent leg cramps. ' counselling was provided on tobacco cessation 1. Chest pain SECONDARY TO COSTOCHONDRITIS 2. H/o Takayasu arteritis 3. DM type 2 (controlled) 4. HTN (BP stable) 5. GERD 6. Mild obesity 7. Leukocytosis: ?reactive 8. Nicotine dependance 9. Gastroenteritis- Recent nausea with vomiting and diarrhea few days prior to presentation now resolved 10. CAD with stents Disposition: - TO HOME OR SELFCARE Time spent for discharge: 35 mins Core Measure Documentation - Palliative Care Palliative Care/ Comfort Measures: Not Applicable - Core Measures Any of the following diagnoses?: none Exam - Physical Exam Narrative exam: General appearance: Present: obese - EENT Eyes: Present: PERRL ENT: hearing intact, clear oral mucosa - Neck Neck: Present: supple, normal ROM - Respiratory Respiratory effort: normal Respiratory: bilateral: CTA - Cardiovascular Rhythm: regular Heart Sounds: Present: S1 & S2. Absent: systolic murmur, diastolic murmur - Extremities Extremities: no ischemia, pulses intact, pulses symmetrical, No edema, normal temperature, Full ROM Peripheral Pulses: within normal limits - Abdominal General gastrointestinal: soft, non-tender, non-distended, normal bowel sounds - Integumentary Integumentary: Present: clear, warm, dry - Psychiatric Psychiatric: appropriate mood/affect, intact judgment & insight, cooperative - Neurologic Neurologic: CNII-XII intact, moves all extremities - Allied Health Allied health notes reviewed: nursing - Constitutional Vitals: Temp Pulse Resp BP Pulse Ox 97.8 F 75 16 129/91 95 07/04/18 04:17 07/04/18 04:17 07/04/18 04:17 07/04/18 09:42 07/04/18 04:17 Plan Activity: advance as tolerated, fall precautions Diet: low fat, diabetic Special Instructions: record daily weights, record daily BP diary, record blood sugar diary Follow up with: KIARRA MCGHEE MD [Staff Physician] - 7 Days LONDON INGRAM DO [Primary Care Provider] - 7 Days MIREYA HEBERT MD [Staff Physician] - 7 Days Prescriptions: Ranolazine ER [Ranexa ER] 500 mg PO BID #60 tablet
[2018-07-04] MEDS ORDERED: PEPCID PO SCH (12:00)
[2018-07-04] MEDS ORDERED: RANEXA ER PO SCH (12:00)
[2018-07-04] MEDS: HumaLOG SUB-Q SCH ×2 (12:36→12:43)
[2018-07-04] MEDS: EFFIENT PO SCH (12:37)
[2018-07-04] MEDS: LOPRESSOR PO SCH (12:38)
[2018-07-04] MEDS: NORVASC PO SCH (12:40)
[2018-07-04] MEDS: COZAAR PO SCH (12:41)
[2018-07-04 12:42] VITALS: BP 119/84
[2018-07-04] MEDS: SODIUM CHLORIDE FLUSH SYRINGE 10 ML IV SCH (12:42)
[2018-07-04] MEDS: HALFPRIN EC PO SCH (12:42)
--- NOTE | 2018-07-05 02:21 | Treadmill Report ---
NUCLEAR STRESS TEST REPORT The patient is brought to the Cardiology lab and a Lexiscan stress test is performed and the patient tolerated the procedure well. Post-stress images revealed fairly homogeneous distribution of the isotope, somewhat patchy distribution of the isotope is noted, but no large areas of reversibility. Mild reversibility is noted in the lateral wall of questionable significance. IMPRESSION: 1. The patient tolerated the Lexiscan stress test well. 2. Nuclear images reveal mild area of reversibility in the mid lateral and apical areas of questionable significance. No large areas of ischemia noted. Accompanying gated study shows good systolic function with a calculated ejection fraction of 63%. Suggest clinical correlation. JOB# [id number] KBM/NTS
== END 2018-07-04 13:30 | disposition home or self-care (01) | DRG 206 ==
LOC: ED 17:47 → 4A 20:07
PROVIDERS: ADMIT Internal Medicine; ATTEND Internal Medicine
DX: M94.0 Chondrocostal junction syndrome [Tietze] (principal); M31.4 Aortic arch syndrome [Takayasu]; K21.9 Gastro-esophageal reflux disease without esophagitis; I10 Essential (primary) hypertension; E11.9 Type 2 diabetes mellitus without complications; E66.01 Morbid (severe) obesity due to excess calories; D72.829 Elevated white blood cell count, unspecified; F17.200 Nicotine dependence, unspecified, uncomplicated; K52.9 Noninfective gastroenteritis and colitis, unspecified; R25.2 Cramp and spasm; I25.119 Atherosclerotic heart disease of native coronary artery with unspecified angina pectoris; E78.5 Hyperlipidemia, unspecified; Z68.34 Body mass index [BMI] 34.0-34.9, adult; Z95.5 Presence of coronary angioplasty implant and graft; Z71.6 Tobacco abuse counseling; Z79.82 Long term (current) use of aspirin; Z79.899 Other long term (current) drug therapy; Z95.810 Presence of automatic (implantable) cardiac defibrillator; Z90.49 Acquired absence of other specified parts of digestive tract
CPT/HCPCS: 36415; 71045; 78452; 80048; 80076; 82962; 83036; 83880; 84484; 84703; 85025; 85379; 85610; 85730; 93005; 93010; 93017; G0378; A9270-GY; A9502; J1815; J2270; J2785